=== PATIENT | female | born 1950 | race Caucasian/White ===

== ENCOUNTER 2021-06-17 08:44 | Observation (INO) ==
[2021-06-17] MEDS ORDERED: Ringers Solution, Lactated 1,000 ML IVC SCH (09:15)
[2021-06-17] MEDS ORDERED: *HR* FentaNYL (PF) 100 MCG/2 ML VIAL ONE (10:24)
[2021-06-17] MEDS ORDERED: *HR* Propofol 200 MG/20 ML VIAL IVP ONE (10:24)
[2021-06-17] MEDS ORDERED: Ondansetron 4 MG/2 ML VIAL ONE (10:25)
[2021-06-17] MEDS ORDERED: Lidocaine HCL 4 ML Topical Solution (Laryng-O-Jet Kit Sterile Pak) TP ONE (10:25)
[2021-06-17] MEDS ORDERED: Lidocaine -MPF 2% 2 ML VIAL ONE (10:25)
[2021-06-17] MEDS ORDERED: *HR* Rocuronium Bromide 50 MG/5 ML VIAL ONE ×2 (10:25→12:06)
[2021-06-17] MEDS ORDERED: CeFAZolin Syr 2,000MG/20 ML 2,000 MG/20 ML SYRINGE IVPB ONE (10:45)
[2021-06-17] MEDS ORDERED: *HR* HYDROmorphone 2 MG TABLET PO PRN (11:03)
[2021-06-17] MEDS ORDERED: *HR* Labetalol 20 MG/4 ML SYRINGE IVP PRN (11:03)
[2021-06-17] MEDS ORDERED: *HR* HYDROmorphone (PF) 1 MG/ML SYRINGE IVP PRN (11:03)
[2021-06-17] MEDS ORDERED: Acetaminophen IV 1,000 MG/100 ML BAG IVPB ONE (11:03)
[2021-06-17] MEDS ORDERED: Famotidine 20 MG/2 ML VIAL IVP ONE (11:03)
[2021-06-17] MEDS ORDERED: Ketorolac 30 MG/ML VIAL IVP PRN (11:03)
[2021-06-17] MEDS ORDERED: *HR* HYDROMORPHONE 2 MG/ML VIAL ONE (11:41)
[2021-06-17] MEDS ORDERED: Sugammadex Sodium 200 MG/2 ML VIAL IV ONE (11:45)
[2021-06-17] MEDS ORDERED: Ipratropium/Albuterol Neb 3 ML ONE (13:35)
[2021-06-17] MEDS ORDERED: Nitroglycerin 0.4 MG TAB.SUBL SL PRN (15:14)
[2021-06-17] MEDS ORDERED: 0.9 % Sodium Chloride 1,000 ML IVC SCH (15:14)
[2021-06-17] MEDS ORDERED: Ondansetron 4 MG/2 ML VIAL IVP PRN (15:14)
[2021-06-17] MEDS: Piperacillin/Tazobactam 3.375 GM in 0.9 % Sodium Chloride Mini Bag 100 ML IVPB SCH ×2 (16:32→23:44)
[2021-06-17] MEDS: Clindamycin 900 MG/50 ML 900 MG/50 ML IV.SOLN IVPB SCH ×2 (16:32→23:44)
[2021-06-17] MEDS: Gabapentin 300 MG CAPSULE PO SCH ×2 (16:32→20:43)
[2021-06-17] MEDS ORDERED: *HR* OxyCODONE ER (12 HR) 10 MG TABLET PO PRN (19:40)
[2021-06-17] MEDS ORDERED: *HR* OxyCODONE/APAP 5/325 TABLET PO PRN (19:59)
[2021-06-18] MEDS ORDERED: Ibuprofen 800 MG TABLET PO ONE (06:41)
[2021-06-18] MEDS ORDERED: methocarbamoL 750 MG TABLET PO ONE (06:42)
[2021-06-18] MEDS ORDERED: Cholestyramine 4 GM POWD.PACK PO SCH (09:00)
[2021-06-18] MEDS ORDERED: ARIPiprazole 2 MG TABLET PO SCH (09:00)
[2021-06-18] MEDS ORDERED: Furosemide 20 MG TABLET PO SCH (09:00)
[2021-06-18] MEDS ORDERED: atenoloL 25 MG TABLET PO SCH (09:00)
[2021-06-18] MEDS: Piperacillin/Tazobactam 3.375 GM in 0.9 % Sodium Chloride Mini Bag 100 ML IVPB SCH (09:18)
[2021-06-18] MEDS: Gabapentin 300 MG CAPSULE PO SCH (09:21)
[2021-06-18 12:47] VITALS: BP 138/67; PULSE 67; TEMP 98; O2SAT 98
== END 2021-06-18 16:03 | disposition home or self-care (01) ==
LOC: 3ANU 08:44 → SAMDAY 08:44 → 3ANU 14:17
PROVIDERS: ADMIT Surgery; ATTEND Surgery